=== PATIENT | male | born 1950 | race Caucasian/White ===

== ENCOUNTER 2017-07-29 23:38 | Emergency (ER) | payer OTHER, MEDICARE ==
[2017-07-29 23:50] VITALS: BP 157/100; PULSE 74; TEMP 98.2; BMI 27.3
--- NOTE | 2017-07-30 00:18 | PDOC ---
History of Present Illness - General Chief Complaint: Tetanus,Booster Stated Complaint: INJURY Time Seen by Provider: 07/30/17 00:16 History Source: Patient Exam Limitations: No Limitations - History of Present Illness Initial Comments: 07/30/17 00:18 67-year-old male presents to the ER complaining of a puncture wound to the left heel after he accidentally stepped on a nail while barefoot 3 hours ago. Patient denies fever, chills, extremity numbness or tingling sensation. Patient states he is pain-free and comes to the ER today for a tetanus booster. Past History - Past Medical History Allergies/Adverse Reactions: Allergies Allergy/AdvReac Type Severity Reaction Status Date / Time No Known Allergies Allergy Verified 07/29/17 23:50 - Suicide/Smoking/Psychosocial Hx Smoking History: Never smoked Have you smoked in the past 12 months: No Information on smoking cessation initiated: No Hx Alcohol Use: No Drug/Substance Use Hx: No Review of Systems - Review of Systems Able to Perform ROS?: Yes Comments:: 07/30/17 01:03 CONSTITUTIONAL: Absent: fever, chills, diaphoresis, generalized weakness, malaise, loss of appetite MUSCULOSKELETAL: Absent: myalgia, arthralgia, joint swelling SKIN: Absent: rash, itching, pallor pw to left heel Is the patient limited German proficient: No *Physical Exam - Vital Signs Last Vital Signs Temp Pulse Resp BP Pulse Ox 98.2 F 74 16 157/100 97 07/29/17 23:47 07/29/17 23:47 07/29/17 23:47 07/29/17 23:47 07/29/17 23:47 - Physical Exam Comments: 07/30/17 01:03 GENERAL: Well developed, well nourished. Awake and alert. No acute distress. SKIN: Warm and dry. Normal capillary refill. No rashes. No jaundice. Puncture wound to the left heel ED Treatment Course - RADIOLOGY Radiograph Interpretation: 07/30/17 01:05 Cr: left heel/ Pt adamantly declines *DC/Admit/Observation/Transfer Diagnosis at time of Disposition: Puncture wound - Discharge Dispostion Disposition: HOME Condition at time of disposition: Stable Admit: No - Referrals Referrals: Andreas Lind MD [Primary Care Provider] - - Patient Instructions Printed Discharge Instructions: DI for Puncture Wound Additional Instructions: Clean the puncture wound with soap and water Take antibiotics as prescribed until completion: Keflex 500 mg 1 tab twice a day for 5 days Follow-up with the steam shovel operator within 48 hours Wound check in 48 hours if you can't get an appointment with the steam shovel operator You received a tetanus booster today Return to the emergency department for signs of infection: Redness, drainage, red streaks, fever - Post Discharge Activity
[2017-07-30] MEDS ORDERED: TETANUS AND DIPHTHERIA TOXOID 0.5 ML DISP.SYRIN IM ONE (00:29)
[2017-07-30] MEDS ORDERED: CEPHALEXIN MONOHYDRATE 500 MG CAPSULE (UD) PO ONE (00:40)
[2017-07-30] MEDS ORDERED: CEPHALEXIN MONOHYDRATE 500 MG CAPSULE (UD) ONE (00:54)
== END 2017-07-30 01:10 | disposition home or self-care (01) ==
LOC: JER 23:38
PROC: 3E0234Z Introduction of Serum, Toxoid and Vaccine into Muscle, Percutaneous Approach (ICD-10-PCS; principal; 2017-07-29)
DX: S91.332A Puncture wound without foreign body, left foot, initial encounter (principal); W45.0XXA Nail entering through skin, initial encounter; Y93.89 Activity, other specified; Y92.89 Other specified places as the place of occurrence of the external cause; Y99.8 Other external cause status
CPT/HCPCS: 90471; 99281-25

== ENCOUNTER 2021-05-07 04:23 | Day surgery (SDC) | payer OTHER, MEDICARE ==
[2021-04-30 13:14] VITALS: BMI 34.2
[2021-05-07] MEDS ORDERED: ROCURONIUM BROMIDE 50 MG/5 ML SYRINGE ONE (07:56)
[2021-05-07] MEDS ORDERED: PROPOFOL 20 ML ONE (07:56)
[2021-05-07] MEDS ORDERED: SUCCINYLCHOLINE CHLORIDE 200 MG/10 ML SYRINGE ONE (07:57)
[2021-05-07] MEDS ORDERED: ceFAZolin SODIUM 1 GM VIAL ONE (08:26)
[2021-05-07] MEDS ORDERED: ceFAZolin SODIUM 1 GM VIAL IVPB ONE (08:28)
[2021-05-07] MEDS ORDERED: PHENYLEPHRINE HCL 10 MG/1 ML SINGLE DOSE VIAL ONE (08:30)
[2021-05-07] MEDS ORDERED: BUPIVACAINE HCL/PF 0.5% (5 MG/ML) 30 ML VIAL IJ ONE (08:39)
[2021-05-07] MEDS ORDERED: DEXAMETHASONE SOD PHOSPHATE 4 MG/1 ML VIAL ONE (09:02)
[2021-05-07] MEDS ORDERED: NEOSTIGMINE METHYLSULFATE 0.5 MG/ML - 10 ML MDV ONE (09:53)
[2021-05-07] MEDS ORDERED: GLYCOPYRROLATE 0.2 MG/1 ML VIAL ONE (09:53)
[2021-05-07] MEDS ORDERED: ONDANSETRON 4 MG/2 ML VIAL IVPUSH PRN (10:13)
[2021-05-07] MEDS ORDERED: oxyCODONE HCL 5 MG TABLET PO PRN (10:13)
[2021-05-07] MEDS ORDERED: ACETAMINOPHEN 325 MG TABLET (FP) PO PRN (10:13)
[2021-05-07] MEDS ORDERED: LACTATED RINGERS SOLUTION 1,000 ML IV SCH (10:15)
[2021-05-07] MEDS ORDERED: oxyCODONE HCL 5 MG TABLET ONE (12:08)
[2021-05-07 13:29] VITALS: BP 114/59; PULSE 91; TEMP 97.5
== END 2021-05-07 14:30 | disposition home or self-care (01) ==
LOC: JASU-SURG 04:23
PROVIDERS: ATTEND Surgery
PROC: 8E0W4CZ Robotic Assisted Procedure of Trunk Region, Percutaneous Endoscopic Approach (ICD-10-PCS; 2021-05-07)
PROC: 0YU54JZ Supplement Right Inguinal Region with Synthetic Substitute, Percutaneous Endoscopic Approach (ICD-10-PCS; principal; 2021-05-07 08:00)
DX: K40.90 Unilateral inguinal hernia, without obstruction or gangrene, not specified as recurrent (principal)
CPT/HCPCS: 49650; S2900; 94760